=== PATIENT | female | born 1975 | race American Indian/Alaskan Native ===

== ENCOUNTER 2016-03-17 15:52 | Emergency (ER) | payer MEDICAID, OTHER ==
--- NOTE | 2016-03-17 17:41 | Emergency Department Report ---
Chief Complaint: Upper Respiratory Infection Stated Complaint: CP/COUGHING UP BLOOD/KNEE PAIN Time Seen by Provider: 03/17/16 17:34 - HPI History of Present Illness: -year-old female comes in for productive cough 5-6 days. She reports the sputum has been green and then noticed that today he has been green and black. Patient has a fever chills off and on for the last couple days. She also complains left upper chest pain off and on worse with cough. She has a complaint of left knee pain and swelling times about 4 days she reports no trauma no twisting at all. Patient does report that is painful when she bends. She has been elevating it without much success. He does notice some swelling. She has not been walking as much as she usually does which, baffled her. - Exam Vital Signs: Vital Signs 03/17/16 16:08 Temperature 98.2 F Pulse Rate 90 Respiratory 18 Rate Blood Pressure 130/87 O2 Sat by Pulse 99 Oximetry Physical Exam: Patient is alert and oriented 3 cardiovascular S1-S2 regular rate and rhythm respiratory clear to auscultation bilateral left leg tenderness of the calf in the medial and lateral. MSE screening note: Focused history and physical exam performed. Due to findings the following was ordered: Patient evaluated by this illness a provider she will be seen in the main ER ED Disposition for MSE Condition: Stable
[2016-03-17 18:06] LABS: Hematocrit 38.9 % (30.3-42.9); Hemoglobin 13.2 gm/dl (10.1-14.3); Mean Corpuscular HGB Conc 34 % (30-34); Mean Corpuscular Hemoglobin 27 pg (28-32); Mean Corpuscular Volume 79 fl (79-97); Platelet Count 306 K/mm3 (140-440); Red Blood Count 4.92 M/mm3 (3.65-5.03); Red Cell Distribution Width 15.9 % (13.2-15.2)
[2016-03-17 18:25] LABS: BUN/Creatinine Ratio 21.66; Blood Urea Nitrogen 13 mg/dL (7-17); Calcium 9.5 mg/dL (8.4-10.2); Carbon Dioxide 30 mmol/L (22-30); Chloride 100.9 mmol/L (98-107); Glucose 84 mg/dL (65-100); Potassium 4.3 mmol/L (3.6-5.0); Sodium 141 mmol/L (137-145)
[2016-03-17 18:34] LABS: Anion Gap 14 mmol/L
[2016-03-18] MEDS ORDERED: PERCOCET 5/325 PO ONE (02:06)
[2016-03-18] MEDS ORDERED: DUONEB 0.5 MG-3 MG/3 ML SOLN IH ONE (02:06)
[2016-03-18] MEDS ORDERED: ROBITUSSIN AC PO ONE (02:06)
--- NOTE | 2016-03-18 02:35 | Emergency Department Report ---
HPI - General Chief Complaint: Upper Respiratory Infection Time Seen by Provider: 03/17/16 17:34 - HPI HPI: This is a 40-year-old Afro-French female presents to the emergency department with complaint of a one-week history of a cough that is productive and started off with greenish sputum but now has become a mixture of green and black. For the past 3-4 days just complains of some midsternal and left-sided intermittent chest pains that worsens with cough. Finally patient also complains of a 3-4 history of left knee pain and swelling. She says she feels it most in the back of the knee. She denies any trauma to the area. The swelling has come down with some ice and elevation but the pain has continued. She says it is hard for her to flex the knee and therefore to ambulate using it. Patient has not taken anything specifically for the knee but did try some Robitussin and NyQuil for her cough without any relief. No recent travel or sick contacts at home. She denies any past medical history. Her primary care doctor is a Dr. Greer. ED Past Medical Hx - Past Medical History Hx Hypertension: Yes - Surgical History Additional Surgical History: TUBAL LIGATION. X 2. LEEP - Social History Smoking Status: Former Smoker Substance Use Type: None - Medications Home Medications: Home Medications Medication Instructions Recorded Confirmed Last Taken Type Hydrochlorothiazide [HCTZ] 25 mg PO QDAY 03/17/16 03/17/16 03/17/16 08:00 History ALBUTEROL Inhaler [ProAir HFA 2 puff IH QID PRN #1 inhalation 03/18/16 Unknown Rx Inhaler] Benzonatate [Tessalon Perles] 100 mg PO Q8HR #20 capsule 03/18/16 Unknown Rx HYDROcodone/APAP 5-325 [[place] 1 each PO Q6HR PRN #14 tablet 03/18/16 Unknown Rx 5/325] ED Review of Systems ROS: Stated complaint: CP/COUGHING UP BLOOD/KNEE PAIN Other details as noted in HPI Comment: All other systems reviewed and negative Constitutional: denies: chills, fever Eyes: denies: eye pain, eye discharge, vision change ENT: denies: ear pain, throat pain Respiratory: cough, shortness of breath Cardiovascular: chest pain. denies: palpitations Gastrointestinal: denies: abdominal pain, nausea, diarrhea Genitourinary: denies: urgency, dysuria, discharge Musculoskeletal: joint swelling, arthralgia Skin: denies: rash, lesions Neurological: denies: headache, weakness, paresthesias Physical Exam - Physical Exam Vital Signs: Vital Signs 03/17/16 03/18/16 03/18/16 16:08 00:04 01:59 Temperature 98.2 F 97.8 F Pulse Rate 90 81 Pulse Rate [ Bilateral Throughout] Respiratory 18 18 16 Rate Respiratory Rate [Bilateral Throughout] Blood Pressure 130/87 Blood Pressure 131/95 [Left] O2 Sat by Pulse 99 96 Oximetry 03/18/16 03/18/16 02:04 02:20 Temperature Pulse Rate 79 Pulse Rate [ 77 Bilateral Throughout] Respiratory 18 Rate Respiratory 20 Rate [Bilateral Throughout] Blood Pressure Blood Pressure 136/87 [Left] O2 Sat by Pulse 99 Oximetry Physical Exam: GENERAL: The patient is well-developed well-nourished. HEENT: Normocephalic. Atraumatic. Extraocular motions are intact. Patient has moist mucous membranes. Pupils equal reactive to light bilaterally. NECK: Supple. Trachea is midline. CHEST/LUNGS: Clear to auscultation. There is no respiratory distress noted. No cough heard during examination. HEART/CARDIOVASCULAR: Regular. There is no tachycardia. There is no gallop rub or murmur. ABDOMEN: Abdomen is soft, nontender. Patient has normal bowel sounds. There is no abdominal distention. SKIN: There is no rash. There is some mild swelling to the left circumferential knee but no warmth, erythema, fluctuance or skin color changes. There is no diaphoresis. NEURO: The patient is awake, alert, and oriented. The patient is cooperative. The patient has no focal neurologic deficits. The patient has normal speech. MUSCULOSKELETAL: Tenderness to palpation to the circumferential left knee but worst in the posterior portion. Negative anterior and posterior drawer test. No laxity without the severe stress. Decrease flexion and movement of the left knee secondary to pain. There is no evidence of acute injury. ED Course Vital Signs 03/17/16 03/18/16 03/18/16 16:08 00:04 01:59 Temperature 98.2 F 97.8 F Pulse Rate 90 81 Pulse Rate [ Bilateral Throughout] Respiratory 18 18 16 Rate Respiratory Rate [Bilateral Throughout] Blood Pressure 130/87 Blood Pressure 131/95 [Left] O2 Sat by Pulse 99 96 Oximetry 03/18/16 03/18/16 02:04 02:20 Temperature Pulse Rate 79 Pulse Rate [ 77 Bilateral Throughout] Respiratory 18 Rate Respiratory 20 Rate [Bilateral Throughout] Blood Pressure Blood Pressure 136/87 [Left] O2 Sat by Pulse 99 Oximetry ED Medical Decision Making - Lab Data Result diagrams: 03/17/16 17:49 03/17/16 17:49 - EKG Data -: EKG Interpreted by Me EKG shows normal: sinus rhythm, axis, intervals, QRS complexes, ST-T waves Rate: normal - EKG Data When compared to previous EKG there are: no significant change Interpretation: normal EKG, unchanged when compared t (01/07/12) - Radiology Data Radiology results: report reviewed, image reviewed interpreted by me: Chest x-ray did not show any acute process. Heart is normal shape and size. No effusions. No pneumothorax. No signs of pneumonia seen. X-ray of the left knee shows a effusion but no fracture, dislocation - Medical Decision Making 40-year-old female presents with 2 main complaints. She's been having a weeklong history of a cough and a few days of intermittent chest discomfort. An EKG was done that does not show any signs of ST elevation [place], ischemia or dysrhythmia. Chest x-ray does not show any pneumonia, pleural effusions, pneumothorax or any acute process. Patient had labs that show a negative troponin, negative d-dimer, no signs of infection or any electrolyte abnormalities. Patient's symptoms appear most consistent with some bronchitis and/or pleurisy. Patient has a KIM score of 0. Regarding the patient's left knee pain, an x-ray was done that shows a joint effusion but no foreign body, fracture, dislocation. They appear stable with negative drawer test and no laxity with valgus or varus stress. Patient does have some swelling around the knee. She already had a negative d-dimer which takes her to a much lower probability that she has a DVT. With her description of pain and fullness to the back of the knee, a Bakers cyst is in the differential. The patient was given a order and/or prescription to have a venous Doppler of the left lower extremity done later today. If it is positive for a DVT, she will be referred back to the emergency department. Otherwise if is negative, she has been given a referral for orthopedist. In the emergency department the patient was given some Robitussin-AC for cough, a breathing treatment, and a pain medication for her knee. Upon reevaluation she is feeling much better. Placed in a knee immobilizer. Prescribed pain medication and anticough medication for home. She will return to the ER with any worsening of her symptoms or any acute distress. - Differential Diagnosis DVT, Thomson's cyst, osteoarthritis, bronchitis, pleurisy, [place], PE Critical Care Time: No Critical care attestation.: If time is entered above; I have spent that time in minutes in the direct care of this critically ill patient, excluding procedure time. ED Disposition Clinical Impression: Bronchitis, Pleurisy, Knee effusion, left Knee pain Qualifiers: Laterality: left Chronicity: acute Qualified Code(s): M25.562 - Pain in left knee Disposition: DISCHARGED TO HOME OR SELFCARE Is pt being admited?: No Does the pt Need Aspirin: No Condition: Stable Instructions: Acute Bronchitis (ED), Knee Effusion (ED), Arthralgia (ED), Pleurisy (ED) Additional Instructions: Please follow-up with your primary care doctor the next few days. I also given you a referral for a local orthopedist, Dr. Kaur, to follow-up regarding your left knee pain. You could continue to use elevation, compression and ice for any pain and swelling. I have also prescribed some pain medication for the knee. You've been prescribed a medication that is sedating. Therefore this medication cannot be mixed with alcohol, or taken prior to driving, working, or being responsible for children. Return to the emergency department with any worsening of your symptoms or any acute distress. You've been given a order/prescription to return later today to have a ultrasound done of your left leg. Call when they opened this morning to schedule an appointment. If the ultrasound comes back showing a blood clot, he will be referred back to the emergency department. If not, follow-up with your primary care doctor and the orthopedist. Prescriptions: HYDROcodone/APAP 5-325 [[place] 5/325] 1 each PO Q6HR PRN #14 tablet PRN Reason: Pain ALBUTEROL Inhaler [ProAir HFA Inhaler] 2 puff IH QID PRN #1 inhalation PRN Reason: Shortness Of Breath Benzonatate [Tessalon Perles] 100 mg PO Q8HR #20 capsule Referrals: TYE GREER MD [Primary Care Provider] - 3-5 Days HEATHER KAUR MD [Staff Physician] - 3-5 Days Time of Disposition: 03:56
[2016-03-18 04:28] VITALS: BP 132/84
--- NOTE | 2016-03-18 07:53 | XRay Report ---
LEFT KNEE, 3 VIEWS History: Left knee pain. Findings: Normal bone mineralization. Minimal tibial spine spurring and retropatellar spurring are identified. The joint space is unremarkable otherwise. No evidence for a fracture or bone lesion. Moderate joint effusion is suspected which extends to the suprapatellar bursa. Small enthesophyte on the suprapatellar is noted. Impression: Early osteoarthritic changes. Joint effusion.
--- NOTE | 2016-03-18 08:24 | XRay Report ---
ROUTINE CHEST, TWO VIEWS: HISTORY: Cough, fever, pleurisy. The trachea, heart, mediastinal contour, lung mesa and bony thorax are unremarkable. IMPRESSION: Unremarkable chest x-ray. No significant change since 01/07/12.
== END 2016-03-18 04:43 | disposition home or self-care (01) ==
LOC: ED 15:52
DX: J40 Bronchitis, not specified as acute or chronic (principal); M25.462 Effusion, left knee; R09.1 Pleurisy; I10 Essential (primary) hypertension; Z87.891 Personal history of nicotine dependence; Z98.51 Tubal ligation status
CPT/HCPCS: 36415; 71020; 80048; 84484; 85027; 85379; 93005; 93010; 94640

== ENCOUNTER 2016-10-17 22:07 | Emergency (ER) | payer MEDICAID ==
[2016-10-17 23:31] LABS: Basophils % (Auto) 0.6 % (0.0-1.8); Eosinophils % (Auto) 1.3 % (0.0-4.3); Hematocrit 37.9 % (30.3-42.9); Hemoglobin 12.5 gm/dl (10.1-14.3); Mean Corpuscular HGB Conc 33 % (30-34); Mean Corpuscular Hemoglobin 26 pg (28-32); Mean Corpuscular Volume 80 fl (79-97); Platelet Count 302 K/mm3 (140-440); Red Blood Count 4.76 M/mm3 (3.65-5.03); Red Cell Distribution Width 15.3 % (13.2-15.2); White Blood Count 10.1 K/mm3 (4.5-11.0)
[2016-10-17 23:35] LABS: Blood Urea Nitrogen 12 mg/dL (7-17); Carbon Dioxide 26 mmol/L (22-30); Glucose 97 mg/dL (65-100)
[2016-10-17 23:36] LABS: Anion Gap 17 mmol/L; Chloride 98.6 mmol/L (98-107); Potassium 3.1 mmol/L (3.6-5.0); Sodium 138 mmol/L (137-145)
[2016-10-17 23:38] LABS: Bilirubin,Urine NEG (Negative); Blood,Urine NEG (Negative); Ketones,Urine NEG (Negative); Leukocyte Esterase,Urine TR (Negative); Mucus,Urine FEW /HPF; Nitrite,Urine NEG (Negative); Protein,Urine <15 mg/dL mg/dL (Negative); Urobilinogen,Urine < 2.0 mg/dL (<2.0)
[2016-10-18] MEDS ORDERED: TYLENOL PO ONE (02:06)
[2016-10-18] MEDS ORDERED: NORCO 10/325 PO ONE (09:06)
[2016-10-18] MEDS ORDERED: SUBLIMAZE IV ONE (09:08)
--- NOTE | 2016-10-18 09:17 | XRay Report ---
FINAL REPORT EXAM: XR CHEST ROUTINE 2V HISTORY: chest pain eval TECHNIQUE: 2 views of the chest PRIORS: None FINDINGS: Normal heart size. No pleural effusion or pneumothorax. Lungs are clear. No vascular congestion. IMPRESSION: 1. No acute finding.
--- NOTE | 2016-10-18 09:18 | Emergency Department Report ---
ED General Adult HPI - General Chief complaint: Chest Pain Stated complaint: NECK/BACK PAIN Time Seen by Provider: 10/18/16 08:37 Source: patient Mode of arrival: Ambulatory Limitations: No Limitations - History of Present Illness Initial comments: Patient is a 41-year-old female who has a past medical history of high blood pressure presents with back and neck pain that has been going on for the last 3 days she states that it's on the left side of her body. It is an achy type of pain the pain was gradual. It radiates to her lower thigh she says is an achy type of pain moving makes the pain worse and nothing makes it better. Patient has no nausea or vomiting no shortness of breath. She says the pain as a 7 out of 10. Severity scale (0 -10): 0 - Related Data Home Medications Medication Instructions Recorded Confirmed Last Taken Hydrochlorothiazide [HCTZ] 25 mg PO QDAY 03/17/16 03/17/16 03/17/16 08:00 Previous Rx's Medication Instructions Recorded Last Taken Type ALBUTEROL Inhaler [ProAir HFA 2 puff IH QID PRN #1 inhalation 03/18/16 Unknown Rx Inhaler] Benzonatate [Tessalon Perles] 100 mg PO Q8HR #20 capsule 03/18/16 Unknown Rx HYDROcodone/APAP 5-325 [[place] 1 each PO Q6HR PRN #14 tablet 03/18/16 Unknown Rx 5/325] Acetaminophen [Acetaminophen TAB] 1,000 mg PO Q6HR PRN #60 tablet 10/18/16 Unknown Rx Naproxen [Naproxen TAB] 250 mg PO Q8HR PRN #20 tablet 10/18/16 Unknown Rx Sulfamethoxazole/Trimethoprim 1 tab PO BID #10 tab 10/18/16 Unknown Rx [Bactrim 400-80 mg] Allergies Allergy/AdvReac Type Severity Reaction Status Date / Time Penicillins Allergy Hives Verified 03/17/16 16:10 ED Review of Systems ROS: Stated complaint: NECK/BACK PAIN Other details as noted in HPI Constitutional: denies: chills, fever Eyes: denies: eye pain, eye discharge, vision change ENT: denies: ear pain, throat pain Respiratory: denies: cough, shortness of breath, wheezing Cardiovascular: chest pain. denies: palpitations Endocrine: no symptoms reported Gastrointestinal: denies: abdominal pain, nausea, diarrhea Genitourinary: denies: urgency, dysuria, discharge Musculoskeletal: myalgia. denies: back pain, joint swelling, arthralgia Skin: denies: rash, lesions Neurological: denies: headache, weakness, paresthesias Psychiatric: denies: anxiety, depression Hematological/Lymphatic: denies: easy bleeding, easy bruising ED Past Medical Hx - Past Medical History Hx Hypertension: Yes - Surgical History Additional Surgical History: TUBAL LIGATION. X 2. LEEP - Social History Smoking Status: Never Smoker Substance Use Type: None - Medications Home Medications: Home Medications Medication Instructions Recorded Confirmed Last Taken Type Hydrochlorothiazide [HCTZ] 25 mg PO QDAY 03/17/16 03/17/16 03/17/16 08:00 History ALBUTEROL Inhaler [ProAir HFA 2 puff IH QID PRN #1 inhalation 03/18/16 Unknown Rx Inhaler] Benzonatate [Tessalon Perles] 100 mg PO Q8HR #20 capsule 03/18/16 Unknown Rx HYDROcodone/APAP 5-325 [[place] 1 each PO Q6HR PRN #14 tablet 03/18/16 Unknown Rx 5/325] Acetaminophen [Acetaminophen TAB] 1,000 mg PO Q6HR PRN #60 tablet 10/18/16 Unknown Rx Naproxen [Naproxen TAB] 250 mg PO Q8HR PRN #20 tablet 10/18/16 Unknown Rx Sulfamethoxazole/Trimethoprim 1 tab PO BID #10 tab 10/18/16 Unknown Rx [Bactrim 400-80 mg] ED Physical Exam - General Limitations: No Limitations General appearance: alert, in no apparent distress - Head Head exam: Present: atraumatic, normocephalic - Eye Eye exam: Present: normal appearance - ENT ENT exam: Present: mucous membranes moist - Neck Neck exam: Present: normal inspection - Respiratory Respiratory exam: Present: normal lung sounds bilaterally. Absent: respiratory distress - Cardiovascular Cardiovascular Exam: Present: regular rate, normal rhythm. Absent: systolic murmur, diastolic murmur, rubs, gallop - GI/Abdominal GI/Abdominal exam: Present: soft, normal bowel sounds - Extremities Exam Extremities exam: Present: normal inspection - Back Exam Back exam: Present: normal inspection, paraspinal tenderness - Neurological Exam Neurological exam: Present: alert, oriented X3 - Psychiatric Psychiatric exam: Present: normal affect, normal mood - Skin Skin exam: Present: warm, dry, intact, normal color. Absent: rash ED Course Vital Signs 10/17/16 10/18/16 10/18/16 22:40 01:28 07:39 Temperature 98.4 F 98.8 F 97.7 F Pulse Rate 81 72 68 Respiratory 16 20 18 Rate Blood Pressure 134/86 136/91 Blood Pressure 124/79 [Right] O2 Sat by Pulse 99 99 99 Oximetry - Reevaluation(s) Reevaluation #1: 10/18/16 09:38 Patient is certainly better after IV education I will send patient home. Reevaluation #2: 10/18/16 11:09 Patient is feeling better I will send the patient home. ED Medical Decision Making - Lab Data Result diagrams: 10/17/16 22:55 10/17/16 22:55 Lab Results 10/17/16 10/17/16 10/17/16 Range/Units 22:55 22:55 23:00 WBC 10.1 (4.5-11.0) K/mm3 RBC 4.76 (3.65-5.03) M/mm3 Hgb 12.5 (10.1-14.3) gm/dl Hct 37.9 (30.3-42.9) % MCV 80 (79-97) fl MCH 26 L (28-32) pg MCHC 33 (30-34) % RDW 15.3 H (13.2-15.2) % Plt Count 302 (140-440) K/mm3 Lymph % (Auto) 39.3 H (13.4-35.0) % [place] % (Auto) 6.0 (0.0-7.3) % Eos % (Auto) 1.3 (0.0-4.3) % Baso % (Auto) 0.6 (0.0-1.8) % Lymph # 4.0 (1.2-5.4) K/mm3 [place] # 0.6 (0.0-0.8) K/mm3 Eos # 0.1 (0.0-0.4) K/mm3 Baso # 0.1 (0.0-0.1) K/mm3 Seg Neutrophils % 52.8 (40.0-70.0) % Seg Neutrophils # 5.3 (1.8-7.7) K/mm3 Sodium 138 (137-145) mmol/L Potassium 3.1 L (3.6-5.0) mmol/L Chloride 98.6 (98-107) mmol/L Carbon Dioxide 26 (22-30) mmol/L Anion Gap 17 mmol/L BUN 12 (7-17) mg/dL Creatinine 0.6 L (0.7-1.2) mg/dL Estimated GFR > 60 ml/min BUN/Creatinine Ratio 20.00 % Glucose 97 (65-100) mg/dL Calcium 9.0 (8.4-10.2) mg/dL Troponin T < 0.010 (0.00-0.029) ng/mL Urine Color Yellow (Yellow) Urine Turbidity Clear (Clear) Urine pH 7.0 (5.0-7.0) Ur Specific [place] 1.023 (1.003-1.030) Urine Protein <15 mg/dl (Negative) mg/dL Urine Glucose (UA) Neg (Negative) mg/dL Urine Ketones Neg (Negative) mg/dL Urine Blood Neg (Negative) Urine Nitrite Neg (Negative) Urine Bilirubin Neg (Negative) Urine Urobilinogen < 2.0 (<2.0) mg/dL Ur Leukocyte Esterase Tr (Negative) Urine WBC (Auto) 2.0 (0.0-6.0) /HPF Urine RBC (Auto) 1.0 (0.0-6.0) /HPF U Epithel Cells (Auto) 1.0 (0-13.0) /HPF Urine Mucus Few /HPF 10/18/16 10/18/16 Range/Units 01:38 05:28 WBC (4.5-11.0) K/mm3 RBC (3.65-5.03) M/mm3 Hgb (10.1-14.3) gm/dl Hct (30.3-42.9) % MCV (79-97) fl MCH (28-32) pg MCHC (30-34) % RDW (13.2-15.2) % Plt Count (140-440) K/mm3 Lymph % (Auto) (13.4-35.0) % [place] % (Auto) (0.0-7.3) % Eos % (Auto) (0.0-4.3) % Baso % (Auto) (0.0-1.8) % Lymph # (1.2-5.4) K/mm3 [place] # (0.0-0.8) K/mm3 Eos # (0.0-0.4) K/mm3 Baso # (0.0-0.1) K/mm3 Seg Neutrophils % (40.0-70.0) % Seg Neutrophils # (1.8-7.7) K/mm3 Sodium (137-145) mmol/L Potassium (3.6-5.0) mmol/L Chloride (98-107) mmol/L Carbon Dioxide (22-30) mmol/L Anion Gap mmol/L BUN (7-17) mg/dL Creatinine (0.7-1.2) mg/dL Estimated GFR ml/min BUN/Creatinine Ratio % Glucose (65-100) mg/dL Calcium (8.4-10.2) mg/dL Troponin T < 0.010 < 0.010 (0.00-0.029) ng/mL Urine Color (Yellow) Urine Turbidity (Clear) Urine pH (5.0-7.0) Ur Specific [place] (1.003-1.030) Urine Protein (Negative) mg/dL Urine Glucose (UA) (Negative) mg/dL Urine Ketones (Negative) mg/dL Urine Blood (Negative) Urine Nitrite (Negative) Urine Bilirubin (Negative) Urine Urobilinogen (<2.0) mg/dL Ur Leukocyte Esterase (Negative) Urine WBC (Auto) (0.0-6.0) /HPF Urine RBC (Auto) (0.0-6.0) /HPF U Epithel Cells (Auto) (0-13.0) /HPF Urine Mucus /HPF - EKG Data -: EKG Interpreted by La - EKG Data 10/18/16 09:40 EKG shows normal sinus rhythm prolonged QT normal access no ST segment elevations or T-wave inversions. - Radiology Data Radiology results: report reviewed, image reviewed Chest x-ray: Shows no acute cardiopulmonary disease - Medical Decision Making Chief medical diagnosis: Lumbar sacral strain Differential medical diagnosis: Sciatica, myalgia, metabolic abnormality, hypoglycemia, hypokalemia EKG, CBC, CMP, chest x-ray, UA and I will give patient IV pain medication. Patient is feeling better I will send the patient home with NSAIDs and will have outpatient follow-up with her PCP. Patient has muscle strain. Critical care attestation.: If time is entered above; I have spent that time in minutes in the direct care of this critically ill patient, excluding procedure time. ED Disposition Clinical Impression: Chest wall pain Back pain Qualifiers: Back pain location: low back pain Chronicity: acute Back pain laterality: unspecified Sciatica presence: with sciatica Sciatica laterality: sciatica of left side Qualified Code(s): M54.42 - Lumbago with sciatica, left side UTI (urinary tract infection) Qualifiers: Urinary tract infection type: acute cystitis Hematuria presence: without hematuria Qualified Code(s): N30.00 - Acute cystitis without hematuria Disposition: TO HOME OR SELFCARE Is pt being admited?: No Does the pt Need Aspirin: No Condition: Stable Instructions: Urinary Tract Infection in Women (ED), Costochondritis (ED), Low Back Strain (ED) Prescriptions: Acetaminophen [Acetaminophen TAB] 1,000 mg PO Q6HR PRN #60 tablet PRN Reason: Pain Naproxen [Naproxen TAB] 250 mg PO Q8HR PRN #20 tablet PRN Reason: Pain Sulfamethoxazole/Trimethoprim [Bactrim 400-80 mg] 1 tab PO BID #10 tab Referrals: PRIMARY CARE,MD [Primary Care Provider] - 3-5 Days Time of Disposition: 11:19
[2016-10-18 11:48] VITALS: BP 118/70
== END 2016-10-18 11:49 | disposition home or self-care (01) ==
LOC: ED 22:07
DX: R07.89 Other chest pain (principal); N39.0 Urinary tract infection, site not specified; I10 Essential (primary) hypertension; Z88.0 Allergy status to penicillin
CPT/HCPCS: 36415; 71020; 80048; 81001; 81025; 84484; 85025; 87076; 87086; 87186; 93005; 93010; 96374; 99284; J3010